=== PATIENT | female | born 1980 | race Caucasian/White ===

== ENCOUNTER 2017-05-09 19:46 | Observation (INO) | payer OTHER ==
[~2017-05-09] VITALS: Ht 180.3 cm; Wt 146.0 kg
[2017-05-09] MEDS ORDERED: LACTATED RINGER'S 1000ML 1,000 ML IV SCH (20:19)
[2017-05-09] MEDS ORDERED: IV FLUIDS COMPLETED PRN (20:45)
[2017-05-09] MEDS ORDERED: PATIENT'S ALLERGY INFO NEEDS ENTERED SCH (20:45)
[2017-05-09 21:07] LABS: INR 0.9 (0.9-1.1); PROTHROMBIN TIME (PATIENT) 9.4 SECONDS (9.0-12.0)
[2017-05-09 21:19] LABS: ALKALINE PHOSPHATASE 105 U/L (45-117); ALT/SGPT 34 U/L (12-78); AST/SGOT 26 U/L (15-37); BLOOD UREA NITROGEN 6 mg/dl (7-18); BUN/CREATININE RATIO 10.2 (10-20); CALCIUM 9.4 mg/dl (8.5-10.1); CARBON DIOXIDE 23 mmol/L (21-32); CHLORIDE 109 mmol/L (98-107); GLUCOSE 100 mg/dl (70-99); POTASSIUM 3.1 mmol/L (3.5-5.1); SODIUM 143 mmol/L (136-145); URIC ACID 3.3 mg/dl (2.6-7.2)
[2017-05-09 21:27] LABS: URINE PROTIEN/CREAT RATIO 0.5 (0-0.2); URINE TOTAL PROTEIN 11.3 mg/dl (0-11.9)
[2017-05-09 21:30] LABS: BASO % 0.3 %; BASO ABS # 0.04 K/uL (0-0.2); EOS % 0.3 %; HEMATOCRIT 33.8 % (37-47); IG% 3.7 %; LYMPH % 15.4 %; LYMPH ABS # 2.02 K/uL (1.2-3.4); MEAN CELL VOLUME 88.9 fL (80-100); MEAN CORPUSCULAR HEMOGLOBIN 30.3 pg (25-34); MEAN PLATELET VOLUME 9.6 fL (7.4-10.4); MONO % 4.4 %; NEUT % 75.9 %; PLATELET COUNT 335 K/uL (130-400)
[2017-05-09 21:34] LABS: COMPLETE YES
[2017-05-09] MEDS ORDERED: LABETALOL HCL IV 5 MG/ML 20ML IV STA (21:48)
[2017-05-09] MEDS ORDERED: MAGNESIUM SULFATE / WTR 1,000 ML IV ONE (22:53)
[2017-05-09] MEDS ORDERED: MAGNESIUM SULFATE 4GM / WTR 4 GM BAG ONE (23:02)
[2017-05-09] MEDS ORDERED: PREN1TAB29 (23:12)
[2017-05-09 23:13] VITALS: Ht 180.3 cm; Wt 146.0 kg
[2017-05-09 23:26] LABS: URINE APPEARANCE CLEAR (CLEAR); URINE BILIRUBIN NEG (NEG); URINE COLOR YELLOW; URINE EPITHELIAL CELL AUTO >30 /lpf (0-5); URINE NITRITE NEG (NEG); URINE PH 7.5 (4.5-7.5); URINE SPECIFIC GRAVITY 1.014 (1.000-1.030); UROBILINOGEN NEG (NEG)
[2017-05-09 23:29] LABS: MANUAL MICROSCOPIC REQUIRED? NO; REVIEW REQ? NO
--- NOTE | 2017-05-13 15:41 | HISTORY & PHYSICAL EXAMINATION ---
DATE: 05/09/2017 REASON FOR ADMISSION: Elevated blood pressure. HISTORY OF PRESENT ILLNESS: The patient is a 36-year-old white female 1, para 0 who presents today to the ER after being at an outdoor baby shower. She has previously been seen at [facility] office in [place] for her care. She felt a little dizzy today, was in the heat and had a blood pressure taken at the shower, which was elevated. She presented to the ER where her initial blood pressure was 198/108. She was sent out to the labor and delivery for further evaluation. Her blood pressure here on the initial visit was 202/103. She recently had blood work and workup for [facility] in [place]. Her labs will normal. Her 24-hour urine was done there and that was 486. Her liver functions at that time were fine. Her platelet count was normal. She received 2 doses of steroids this week. She is currently on no medications. She is morbidly obese, has no other medical problems. No gestational diabetes and has had care during the course of the . PAST MEDICAL HISTORY: Significant for morbid obesity. PAST SURGICAL HISTORY: None. PAST SOCIAL HISTORY: Prior history of smoking, quit during . Denies alcohol or drug use. FAMILY HISTORY: Noncontributory. REVIEW OF SYSTEMS: Negative. PHYSICAL EXAMINATION: HEAD, EYES, EARS, NOSE, AND THROAT: Within normal limits. LUNGS: Were clear to auscultation. COR: Regular rate and rhythm. ABDOMEN: Gravid. heart tone category 1. Her blood pressure on admission was 202/103. EXTREMITIES: Revealed 2+ edema, no right upper quadrant pain. PELVIC: No vaginal bleeding. No leakage. LABORATORY DATA: Labs were obtained. Her hemoglobin was 11.5, her hematocrit 33.8, platelet count was 335. Her coags were normal. Her urine dipped trace. Chemistry -- uric acid 3.3. Her AST was 26, ALT 34. Her LDH is 53. The patient was discussed with MFM at [facility], Dr. Rhonda Cyr, fellow and it was agreed that she should be transferred to [facility]. The patient did receive 1 dose of labetalol 5 mg IV push. Her blood pressure did decrease. The patient is currently stable. She has no headache, no visual disturbances, no other signs of worsening preeclampsia and will be stable for transport. ASSESSMENT: Gestational hypertension with class 3 obesity. PLAN: Will start magnesium 4 gram loading dose followed by 2 gram maintenance dose. The patient already received a dose of steroids and will plan on air transport.
--- NOTE | 2017-05-23 14:13 | DISCHARGE SUMMARY ---
REASON FOR ADMISSION AND HOSPITAL COURSE: The patient is a 36-year-old white female 1, para 0, who presents to labor and delivery after traveling to the area from previously receiving care at [facility]. Upon presentation to the ER, the patient was not feeling well. Her blood pressure was 198/100. She was approximately 32 weeks' . She was seen on labor and delivery, where her blood pressure was elevated to 202/103. She received 1 dose of IV labetalol 5 mg. Consult was obtained with maternal medicine. Labs were drawn. Her urine protein was negative. Her liver functions were within normal limits. Her LDH was 253. Her coags were normal. Uric acid 3.3 and platelet count was 335. After speaking with physician at [facility] in [place], the patient was stable for discharge and transferred to tertiary care center at [place] for further care. She received a 6-gram loading dose of magnesium followed by 2 gram per hour infusion and her blood pressure stabilized prior to discharge. CONDITION ON DISCHARGE: Stable. DIET ON DISCHARGE: N.p.o. FINAL DISCHARGE DIAGNOSIS: induced hypertension. MTDD
== END 2017-05-10 00:08 | disposition home or self-care (01) ==
LOC: C.OPB 19:46 → C.LD 19:46 → C.OPB 20:31 → C.LD 20:31
PROVIDERS: ADMIT Obstetrics & Gynecology; ATTEND Obstetrics & Gynecology
DX: O13.3 Gestational [pregnancy-induced] hypertension without significant proteinuria, third trimester (principal); Z3A.32 32 weeks gestation of pregnancy